=== PATIENT | female | born 1950 | race Caucasian/White ===

== ENCOUNTER → 2018-07-06 16:45 | Outpatient (CLI) | payer OTHER, SELFPAY ==
--- NOTE | 2018-07-06 16:49 | DI.RAD.S_ITS ---
PROCEDURE: XR WRIST RT MIN 3V INDICATIONS: right wrist pain TECHNIQUE: 4 views of the wrist were acquired. COMPARISON: None. FINDINGS: Bones: No fractures or dislocations. No suspicious bony lesions. Degenerative changes greatest at the first CMC and STT joints. Scaphoid view: No displaced fractures Soft tissues: No suspicious soft tissue calcifications. IMPRESSION: No acute fractures or dislocations. Degenerative changes greatest at the first CMC and STT joints. Dictated by: Jose Hernandez M.D. on 07/06/2018 at 17:05 Approved by: Jose Hernandez M.D. on 07/06/2018 at 17:06
== END ==
PROVIDERS: PCP Family Medicine; Visit Provider Physician Assistant
DX: M25.531 Pain in right wrist (principal); M19.031 Primary osteoarthritis, right wrist
CPT/HCPCS: 73110

== ENCOUNTER → 2019-04-15 08:22 | Outpatient (CLI) | payer OTHER, SELFPAY ==
--- NOTE | 2019-04-15 | DI.MG.S_ITS ---
BILATERAL DIGITAL SCREENING MAMMOGRAM 3D/2D WITH CAD: 04/15/2019 CLINICAL: Routine screening. Comparison is made to exams dated: 05/12/2017 mammogram, 02/12/2016 mammogram, and 02/06/2015 mammogram - [facility]. The tissue of both breasts is predominantly fatty. Current study was also evaluated with a Computer Aided Detection (CAD) system. No significant masses, calcifications, or other findings are seen in either breast. There has been no significant interval change. IMPRESSION: NEGATIVE There is no mammographic evidence of malignancy. A 1 year screening mammogram is recommended. This exam was interpreted at Station ID: [id number]. NOTE: For mammograms, a report in lay terms will be sent to the patient. Approximately 15% of breast malignancies will not be visualized mammographically. In the management of a palpable breast mass, a negative mammogram must not discourage biopsy of a clinically suspicious lesion. Electronically Signed By: David tidwell/carli:04/17/2019 08:06:00 letter sent: Normal Exam ACR BI-RADS Category 1: Negative 3341F
== END ==
PROVIDERS: PCP Family Medicine; Visit Provider Family Medicine
DX: Z12.31 Encounter for screening mammogram for malignant neoplasm of breast (principal)
CPT/HCPCS: 77063; 77067

== ENCOUNTER → 2019-05-09 07:25 | Outpatient (CLI) | payer OTHER, SELFPAY ==
[2019-05-09 08:34] LABS: Add Manual Diff / Slide Review NO; Basophils Absolute Auto 0 /uL (0-100); Basophils Percent Auto 0.7 % (0-2); Eosinophils Absolute Auto 100 /uL (0-450); Eosinophils Percent Auto 2.2 % (2-4); Hematocrit 39.8 % (36-46); Hemoglobin 13.3 g/dL (12.0-16.0); Lymphocytes Absolute Auto 1200 /uL (1100-4500); Lymphocytes Percent Auto 21.8 % (25-40); Mean Corpuscular HGB Conc 33.6 % (30-36); Mean Corpuscular Hemoglobin 34.4 PG (26-34); Mean Corpuscular Volume 102.6 fL (80-100); Monocytes Absolute Auto 600 /uL (0-900); Monocytes Percent Auto 10.7 % (3-14); Neutrophils Absolute Auto 3700 /uL (1500-7000); Neutrophils Percent Auto 64.6 % (50-75); Platelet Count 279 X10^3/uL (150-400); Red Blood Cell Count 3.88 X10^6/uL (4.0-5.2); Red Cell Distribution Width 13.4 % (11.6-14.8); White Blood Cell Count 5.7 X10^3/uL (4.5-11.0)
[2019-05-09 09:11] LABS: Alanine Aminotransferase 13 IU/L (9-52); Albumin 4.2 g/dL (3.5-5.0); Albumin Globulin Ratio 1.6 (1.0-2.8); Alkaline Phosphatase 47 U/L (38-126); Aspartate Aminotransferase 22 IU/L (14-36); BUN Creatinine Ratio 23.3 (6-22); Bilirubin Total 0.9 mg/dL (0.2-1.3); Blood Urea Nitrogen 14 mg/dL (7-17); Calcium 9.6 mg/dL (8.4-10.2); Carbon Dioxide 29 mmol/L (22-32); Chloride 103 mmol/L (98-107); Cholesterol 192 mg/dL (140-199); Estimated Glomerular Filt Rate > 60.0 mL/min (>60); Globulin 2.7 g/dL (1.7-4.1); Glucose 102 mg/dL (80-110); HDL Cholesterol 77 mg/dL (40-60); HEMOLYSIS < 15 (0-50); LDL Cholesterol Calculated 93 mg/dL (<100); Potassium 4.1 mmol/L (3.4-5.1); Sodium 140 mmol/L (137-145); Total Protein 6.9 g/dL (6.3-8.2); Triglycerides 112 mg/dL (35-150)
== END ==
PROVIDERS: PCP Family Medicine; Visit Provider Family Medicine
DX: D75.89 Other specified diseases of blood and blood-forming organs (principal); E78.5 Hyperlipidemia, unspecified; I10 Essential (primary) hypertension; Z00.00 Encounter for general adult medical examination without abnormal findings; Z13.6 Encounter for screening for cardiovascular disorders
CPT/HCPCS: 36415; 80053; 80061; 85025

== ENCOUNTER → 2020-11-05 15:03 | Outpatient (CLI) | payer MEDICARE, SELFPAY ==
--- NOTE | 2020-11-05 15:06 | DI.MG.S_ITS ---
BILATERAL DIGITAL SCREENING MAMMOGRAM 3D/2D WITH CAD: 11/05/2020 CLINICAL: Routine screening. Comparison is made to exams dated: 04/15/2019 mammogram, 05/12/2017 mammogram, and 02/12/2016 mammogram - [facility]. There are scattered fibroglandular elements in both breasts. Current study was also evaluated with a Computer Aided Detection (CAD) system. No significant masses, calcifications, or other findings are seen in either breast. There has been no significant interval change. IMPRESSION: NEGATIVE There is no mammographic evidence of malignancy. A 1 year screening mammogram is recommended. This exam was interpreted at Station ID: [id number]. NOTE: For mammograms, a report in lay terms will be sent to the patient. Approximately 15% of breast malignancies will not be visualized mammographically. In the management of a palpable breast mass, a negative mammogram must not discourage biopsy of a clinically suspicious lesion. Electronically Signed By: David tidwell/carli:11/05/2020 16:27:34 letter sent: Normal Exam ACR BI-RADS Category 1: Negative 3341F
== END ==
PROVIDERS: PCP Family Medicine; Referring Provider Family Medicine; Visit Provider Family Medicine
DX: Z12.31 Encounter for screening mammogram for malignant neoplasm of breast (principal); M85.851 Other specified disorders of bone density and structure, right thigh; Z78.0 Asymptomatic menopausal state; M06.9 Rheumatoid arthritis, unspecified; Z87.891 Personal history of nicotine dependence; Z82.62 Family history of osteoporosis
CPT/HCPCS: 77063; 77067; 77080

== ENCOUNTER → 2020-11-21 08:06 | Outpatient (CLI) | payer OTHER, SELFPAY ==
[2020-11-21 08:36] LABS: Add Manual Diff / Slide Review NO; Basophils Absolute Auto 0 /uL (0-100); Basophils Percent Auto 0.7 % (0-2); Eosinophils Absolute Auto 100 /uL (0-450); Eosinophils Percent Auto 2.2 % (2-4); Hematocrit 40.4 % (36-46); Hemoglobin 13.6 g/dL (12.0-16.0); Lymphocytes Absolute Auto 1600 /uL (1100-4500); Lymphocytes Percent Auto 25.8 % (25-40); Mean Corpuscular HGB Conc 33.8 % (30-36); Mean Corpuscular Hemoglobin 34.7 PG (26-34); Mean Corpuscular Volume 102.9 fL (80-100); Monocytes Absolute Auto 600 /uL (0-900); Monocytes Percent Auto 9.3 % (3-14); Neutrophils Absolute Auto 3800 /uL (1500-7000); Platelet Count 329 X10^3/uL (150-400); Red Blood Cell Count 3.92 X10^6/uL (4.0-5.2); Red Cell Distribution Width 13.3 % (11.6-14.8); White Blood Cell Count 6.2 X10^3/uL (4.5-11.0)
[2020-11-21 08:55] LABS: Alanine Aminotransferase 15 IU/L (<35); Albumin 4.3 g/dL (3.5-5.0); Albumin Globulin Ratio 1.5 (1.0-2.8); Alkaline Phosphatase 48 U/L (38-126); Aspartate Aminotransferase 30 IU/L (14-36); BUN Creatinine Ratio 21.7 (6-22); Bilirubin Total 0.8 mg/dL (0.2-1.3); Blood Urea Nitrogen 13 mg/dL (7-17); Calcium 9.5 mg/dL (8.4-10.2); Carbon Dioxide 33 mmol/L (22-32); Chloride 103 mmol/L (98-107); Cholesterol 194 mg/dL (140-199); Estimated Glomerular Filt Rate > 60.0 mL/min (>60); Globulin 2.9 g/dL (1.7-4.1); Glucose 112 mg/dL (80-110); HDL Cholesterol 73 mg/dL (40-60); HEMOLYSIS < 15 (0-50); LDL Cholesterol Calculated 101 mg/dL (<100); Potassium 3.4 mmol/L (3.4-5.1); Sodium 139 mmol/L (137-145); Total Protein 7.2 g/dL (6.3-8.2); Triglycerides 100 mg/dL (35-150)
[2020-11-21 09:19] LABS: Creatinine Urine Random 134.3 mg/dL
[2020-11-21 09:25] LABS: Microalbumin Urine Random < 0.6 mg/dL (0-1.6)
== END ==
PROVIDERS: PCP Family Medicine; Referring Provider Family Medicine; Visit Provider Family Medicine
DX: D75.89 Other specified diseases of blood and blood-forming organs (principal); E78.5 Hyperlipidemia, unspecified; I10 Essential (primary) hypertension
CPT/HCPCS: 36415; 80053; 80061; 82043; 82570; 85025

== ENCOUNTER → 2020-11-22 14:59 | Outpatient (CLI) | payer OTHER, SELFPAY ==
[2020-11-22 16:07] LABS: Vitamin B12 Reflex MMA if <400 351 pg/mL (239-931)
== END ==
PROVIDERS: PCP Family Medicine; Visit Provider Family Medicine
DX: D75.89 Other specified diseases of blood and blood-forming organs (principal); M85.80 Other specified disorders of bone density and structure, unspecified site
CPT/HCPCS: 82607

== ENCOUNTER → 2021-01-14 09:20 | Outpatient (CLI) | payer OTHER, SELFPAY ==
[2021-01-14 10:56] LABS: Vitamin D 25 Hydroxy (D3) 35.4 ng/mL (30.0-100.0)
[2021-01-14 11:28] LABS: Vitamin B12 Reflex MMA if <400 777 pg/mL (239-931)
== END ==
PROVIDERS: PCP Family Medicine; Referring Provider Family Medicine; Visit Provider Family Medicine
DX: D75.89 Other specified diseases of blood and blood-forming organs (principal); M85.80 Other specified disorders of bone density and structure, unspecified site; E53.8 Deficiency of other specified B group vitamins
CPT/HCPCS: 36415; 82306; 82607

== ENCOUNTER → 2021-01-17 07:42 | Outpatient (CLI) | payer MEDICARE, SELFPAY ==
[2021-01-17] MEDS: COVID-19 VACC, Ad26(JANSSEN)/PF 0.5 ML IM (07:50)
== END ==
PROVIDERS: PCP Family Medicine; Visit Provider Internal Medicine
DX: Z23 Encounter for immunization (principal)
CPT/HCPCS: 0031A; 91303

== ENCOUNTER → 2022-01-01 17:38 | Outpatient (CLI) | payer MEDICARE, OTHER, SELFPAY ==
--- NOTE | 2022-01-01 17:42 | DI.RAD.S_ITS ---
PROCEDURE: XR WRIST RT MIN 3V INDICATIONS: right wrist injury TECHNIQUE: 4 views of the wrist were acquired. COMPARISON: [facility], , XR WRIST RT MIN 3V, 07/06/2018, 16:28. FINDINGS: Bones: No fractures or dislocations. No suspicious bony lesions. Generalized decrease in osseous mineralization noted. First carpometacarpal joint space narrowing and marginal osteophytes present. Scaphoid view: Unremarkable Soft tissues: No suspicious soft tissue calcifications. IMPRESSION: Osteopenia without fracture or foreign body Osteoarthritis Approved by: Goyo Ferguson M.D. on 01/01/2022 at 17:47
--- NOTE | 2022-01-01 17:42 | DI.RAD.S_ITS ---
PROCEDURE: XR HAND RT MIN 3V INDICATIONS: right wrist injury TECHNIQUE: 3 views of the hand(s) acquired. COMPARISON: [facility], , HAND 3V RIGHT, 01/25/2014, 10:11. FINDINGS: Bones: No fractures or dislocations. Carpal bones are normally aligned. No suspicious bony lesions. Generalized decrease in osseous mineralization noted. Joint space narrowing and subchondral sclerosis noted involving the 1st carpometacarpal joint. Soft tissues: No suspicious soft tissue calcifications. IMPRESSION: Degenerative osteoarthritis without fracture or foreign body Approved by: Goyo Ferguson M.D. on 01/01/2022 at 17:48
== END ==
PROVIDERS: PCP Family Medicine; Referring Provider Student in an Organized Health Care Education/Training Program; Visit Provider Student in an Organized Health Care Education/Training Program
DX: S69.91XA Unspecified injury of right wrist, hand and finger(s), initial encounter (principal); M19.031 Primary osteoarthritis, right wrist; M85.831 Other specified disorders of bone density and structure, right forearm; X58.XXXA Exposure to other specified factors, initial encounter
CPT/HCPCS: 73110; 73130

== ENCOUNTER → 2022-02-18 14:36 | Outpatient (CLI) | payer MEDICARE, OTHER, SELFPAY ==
--- NOTE | 2022-02-18 14:39 | DI.MG.S_ITS ---
BILATERAL DIGITAL SCREENING MAMMOGRAM 3D/2D WITH CAD: 02/18/2022 CLINICAL: Routine screening. Comparison is made to exams dated: 11/05/2020 mammogram, 04/15/2019 mammogram, and 05/12/2017 mammogram - [facility]. There are scattered fibroglandular elements in both breasts. Current study was also evaluated with a Computer Aided Detection (CAD) system. No significant masses, calcifications, or other findings are seen in either breast. There has been no significant interval change. IMPRESSION: NEGATIVE There is no mammographic evidence of malignancy. A 1 year screening mammogram is recommended. This exam was interpreted at Station ID: [id number]. NOTE: For mammograms, a report in lay terms will be sent to the patient. Approximately 15% of breast malignancies will not be visualized mammographically. In the management of a palpable breast mass, a negative mammogram must not discourage biopsy of a clinically suspicious lesion. Electronically Signed By: Neftali goddard/carli:02/18/2022 15:13:26 letter sent: Normal Exam ACR BI-RADS Category 1: Negative 3341F
== END ==
PROVIDERS: PCP Family Medicine; Referring Provider Family Medicine; Visit Provider Family Medicine
DX: Z12.31 Encounter for screening mammogram for malignant neoplasm of breast (principal)
CPT/HCPCS: 77063; 77067

== ENCOUNTER → 2022-03-11 07:09 | Outpatient (CLI) | payer MEDICARE, OTHER, SELFPAY ==
[2022-03-11 07:58] LABS: Add Manual Diff / Slide Review NO; Basophils Absolute Auto 0 /uL (0-100); Basophils Percent Auto 0.8 % (0-2); Eosinophils Absolute Auto 100 /uL (0-450); Eosinophils Percent Auto 2.2 % (2-4); Hematocrit 38.8 % (36-46); Hemoglobin 13.4 g/dL (12.0-16.0); Lymphocytes Absolute Auto 1500 /uL (1100-4500); Mean Corpuscular HGB Conc 34.6 % (30-36); Mean Corpuscular Hemoglobin 35.2 PG (26-34); Mean Corpuscular Volume 101.7 fL (80-100); Monocytes Absolute Auto 600 /uL (0-900); Monocytes Percent Auto 9.8 % (3-14); Neutrophils Absolute Auto 3800 /uL (1500-7000); Neutrophils Percent Auto 63.2 % (50-75); Platelet Count 307 X10^3/uL (150-400); Red Blood Cell Count 3.81 X10^6/uL (4.0-5.2); Red Cell Distribution Width 13.5 % (11.6-14.8); White Blood Cell Count 6.1 X10^3/uL (4.5-11.0)
[2022-03-11 08:17] LABS: Alanine Aminotransferase 15 IU/L (<35); Albumin 4.2 g/dL (3.5-5.0); Albumin Globulin Ratio 1.6 (1.0-2.8); Alkaline Phosphatase 47 U/L (38-126); Aspartate Aminotransferase 25 IU/L (14-36); BUN Creatinine Ratio 17.6 (6-22); Bilirubin Total 0.8 mg/dL (0.2-1.3); Blood Urea Nitrogen 12 mg/dL (7-17); Calcium 9.2 mg/dL (8.4-10.2); Carbon Dioxide 28 mmol/L (22-32); Chloride 104 mmol/L (98-107); Cholesterol 215 mg/dL (140-199); Estimated Glomerular Filt Rate > 60 mL/min (>60); Globulin 2.7 g/dL (1.7-4.1); Glucose 109 mg/dL (80-110); HDL Cholesterol 89 mg/dL (40-60); HEMOLYSIS < 15 (0-50); LDL Cholesterol Calculated 108 mg/dL (<100); Potassium 3.8 mmol/L (3.4-5.1); Sodium 139 mmol/L (137-145); Total Protein 6.9 g/dL (6.3-8.2); Triglycerides 91 mg/dL (35-150)
[2022-03-11 08:23] LABS: Vitamin D 25 Hydroxy (D3) 44.7 ng/mL (30.0-100.0)
[2022-03-11 08:37] LABS: TSH w/ Reflex to FT4 2.29 uIU/mL (0.47-4.68)
[2022-03-11 08:39] LABS: Microalbumin Urine Random < 0.6 mg/dL (0-1.6)
[2022-03-11 08:57] LABS: Vitamin B12 913 pg/mL (239-931)
== END ==
PROVIDERS: PCP Family Medicine; Referring Provider Family Medicine; Visit Provider Family Medicine
DX: E78.5 Hyperlipidemia, unspecified (principal); M85.80 Other specified disorders of bone density and structure, unspecified site; D75.89 Other specified diseases of blood and blood-forming organs; E53.8 Deficiency of other specified B group vitamins; I10 Essential (primary) hypertension; R73.03 Prediabetes
CPT/HCPCS: 36415; 80053; 80061; 82043; 82306; 82570; 82607; 84443; 85025

== ENCOUNTER → 2023-02-24 14:42 | Outpatient (CLI) | payer MEDICARE, OTHER, SELFPAY ==
--- NOTE | 2023-02-24 14:44 | DI.MG.S_ITS ---
BILATERAL DIGITAL SCREENING MAMMOGRAM 3D/2D WITH CAD: 02/24/2023 CLINICAL: Routine screening. Comparison is made to exams dated: 02/18/2022 mammogram, 11/05/2020 mammogram, 04/15/2019 mammogram, and 05/12/[address] - [facility]. There are scattered areas of fibroglandular density in both breasts (category b / 25%-50% glandular tissue). Current study was also evaluated with a Computer Aided Detection (CAD) system. No significant masses, calcifications, or other findings are seen in either breast. There has been no significant interval change. IMPRESSION: NEGATIVE There is no mammographic evidence of malignancy. A 1 year screening mammogram is recommended. Based on the Tyrer Cuzick model (a risk assessment model) the patient's lifetime risk is 6.2% and her 10 year risk is 4.6%. According to the ACR, ACS, and NCCN guidelines, an annual breast MRI exam along with mammogram is recommended if the patient's lifetime risk is 20% or greater. This exam was interpreted at Station ID: [id number]. NOTE: For mammograms, a report in lay terms will be sent to the patient. Approximately 15% of breast malignancies will not be visualized mammographically. In the management of a palpable breast mass, a negative mammogram must not discourage biopsy of a clinically suspicious lesion. Electronically Signed By: Jonah neff/carli:02/24/2023 15:55:14 letter sent: Normal Exam ACR BI-RADS Category 1: Negative 3341F
--- NOTE | 2023-02-24 15:17 | DI.DEXA.S_ITS ---
Bone Density Report Name: NAVEEN ESQUIVEL Age: 72 Sex: Female Ethnicity: White Date of : 1950 Indication: postmenopausal; screening for osteoporosis; parental hip fracture; Referring Provider: PANCHO HOLLIS Study: Bone densitometry was performed. Exam Date: February 24, 2023 Accession number: [id number] Bone Density: Region BMD T-score Z-score Classification AP Spine(L2, L3, L4) 0.948 -1.2 1.1 Osteopenia Femoral Neck (Left) 0.626 -2.0 -0.1 Osteopenia Total Hip (Left) 0.830 -0.9 0.7 Normal Femoral Neck (Right) 0.626 -2.0 -0.1 Osteopenia Total Hip (Right) 0.813 -1.1 0.6 Osteopenia Total Hip Mean 0.822 -1.0 0.7 Normal World Health Organization criteria for BMD impression classify patients as: Normal (T-score at or above -1.0), Osteopenia (T-score between -1.0 and -2.5), or Osteoporosis (T-score at or below -2.5). 10-year Fracture Risk(1): Major Osteoporotic Fracture 19% Hip Fracture 7.3% Reported Risk Factors: [place] (), Neck BMD=0.626, BMI=25.7, parental fracture (1) FRAX(R) Version 3.08. Fracture probability calculated for an untreated patient. Fracture probability may be lower if the patient has received treatment. Previous Exams: -- Region Exam Age BMD T-score BMD Change BMD Change Date g/cm2 vs Baseline vs Previous -- AP Spine (L2-L4) 02/24/2023 72 0.948 -1.2 -0.058 (-5.8%)# -0.058 (-5.8%)# 11/05/2020 69 1.006 -0.7 Total Hip(Left) 02/24/2023 72 0.830 -0.9 -0.051 (-5.8%)# -0.051 (-5.8%)# 11/05/2020 69 0.881 -0.5 Total Hip(Right) 02/24/2023 72 0.813 -1.1 -0.040 (-4.7%)# -0.040 (-4.7%)# 11/05/2020 69 0.853 -0.7 -- *Denotes significance at 95% confidence level, LSC for AP Spine = 0.022 g/cm2, LSC for Total Hip = 0.027 g/cm2 # Denotes dissimilar scan types or analysis methods Impression: The patient has low bone mass, based on the Left Femoral Neck T-score. The patient has an estimated ten-year risk of hip fracture of 7.3% and an estimated ten-year risk of major fracture of 19%, based on the WHO FRAX algorithm. The patient has risk factors, including: parental hip fracture. No significant bone loss was observed. Discussion: BONE DENSITY IS LOW AT ONE OR MORE SKELETAL SITES. THE PATIENT'S BMD AND CLINICAL RISK FACTORS CONTRIBUTE TO THIS PATIENT'S INCREASED RISK OF FRACTURE. This patient's lowest T-score is low at one or more skeletal sites. It meets the World Health Organization's (WHO) criteria for ?low bone mass? (T-score between -1.0 and -2.5). The patient's 10-year risk of hip fracture as calculated by FRAX exceeds the threshold where pharmacological therapy is recommended by the National Osteoporosis Foundation (NOF). However, all treatment decisions require clinical judgment and consideration of individual patient factors, including patient preferences, comorbidities, previous drug use, risk factors not captured in the FRAX model (e.g., frailty, falls, vitamin D deficiency, increased bone turnover, interval significant decline in bone density) and possible under or overestimation of fracture risk by FRAX. The patient should follow a healthful lifestyle (good nutrition with adequate calcium and vitamin D, and appropriate weight-bearing exercise). Follow-Up: Consider a repeat BMD and Vertebral Fracture Assessment (VFA) exam in 2 years or sooner if medically necessary, to reassess this patient's status. Reported by: SCOTT MOODY MD on 02/24/2023 3:05:00 PM.
== END ==
PROVIDERS: PCP Family Medicine; Referring Provider Family Medicine; Visit Provider Family Medicine
DX: Z12.31 Encounter for screening mammogram for malignant neoplasm of breast (principal); Z13.820 Encounter for screening for osteoporosis; M85.852 Other specified disorders of bone density and structure, left thigh; Z78.0 Asymptomatic menopausal state; D53.9 Nutritional anemia, unspecified; I10 Essential (primary) hypertension; E78.5 Hyperlipidemia, unspecified; Z12.83 Encounter for screening for malignant neoplasm of skin
CPT/HCPCS: 77063; 77067; 77080

== ENCOUNTER 2023-06-04 11:35 | Day surgery (SDC) | payer MEDICARE, OTHER, SELFPAY ==
[2023-06-04] VITALS (8 sets, daily range): BP systolic 91–142; BP diastolic 52–81; PULSE 63–100; RESP 14–20; TEMP 36.1–37; O2SAT 96–100; BMI 24.9
--- NOTE | 2023-06-04 | PATH_ITS ---
[facility] Accession Number: [id number] No. of containers..01 Tissue . 01 Material submitted: . cecum - CECAL POLYP . 01 Diagnosis: Cecum, Polyp: Tubular adenoma. JNL 06/11/2023 1742 Local . 01 Electronically signed: . Faustina Pro MD, Pathologist NPI- [id number] . 01 Gross description: . CECAL POLYP: Received in formalin are 2 fragment(s) of sandhu, soft tissue measuring 0.2 x 0.2 x 0.2 cm to 0.3 x 0.3 x 0.2 cm submitted entirely in 1 cassette(s) /RAJAN 06/09/2023 0046 Local . 01 Pathologist provided ICD-10: D12.0 . 01 CPT . 224037 Specimen Comment: A courtesy copy of this report has been sent to Pathology Performed at: [address] [facility] [address] [place] [address], [place], [place] [id number] MD David Norton MD Phone: [phone]
--- NOTE | 2023-06-04 11:50 | P.HP_ITS ---
History of Present Illness History of Present Illness Date Patient Seen: 06/04/23 Time Patient Seen: 11:50 Chief complaint: Dx Colonoscopy w/poss bx Narrative: 72-year-old female presents today for a screening colonoscopy. Her last colonoscopy was 5 or 6 years ago here at [facility] though I do not have the report available for review. She reports a history of 2 polyps and was given a 5 year follow-up because of that. He has no family history of colon c ancer. And she reports some symptoms of external and internal hemorrhoids as well as the fissure and what she thinks might be a developing skin tag. She reports that the anal area can be painful sometimes but is often itchy and burning. She does not take a fiber supplement though she does try to eat more fiber in her diet. [facility] Medical History Actinic keratosis of right cheek (2013) Cervical spine disease (2012) Chicken pox (~1954) Degenerative arthritis of thumb (2012) Easy bruisability Hayfever Hearing loss Hemorrhoids (2011) History of recurrent ear infection Hyperlipidemia Hypertension Itching of ear Measles (~1954) Menopause (2002) Normal Papanicolaou smear Osteoarthritis (2012) Osteopenia after menopause Prediabetes Psychiatric care (2014) Recurrent sinusitis Retroversion of hip (2013) Shoulder pain (2015) Sleep apnea (2012) Synovial cyst of popliteal space [Alatorre], right knee (2013) Tinnitus Wax in ear Surgical History Anesthesia Status post knee surgery (1965) Family History Grandmother Heart disease [place] (myocardial infarction) Mother Diabetes mellitus, type II CAD (coronary artery disease) Osteoarthritis Mild dementia S/P CABG (coronary artery bypass graft) Renal failure Heart disease Hypertension Grandfather Parkinson's disease Pneumonia Grandmother Heart disease Father COPD (chronic obstructive pulmonary disease) Emphysema of lung Grandfather Esophageal hemorrhage NH (myocardial infarction) Esophageal varices Sister Left hip pain Social History household members: spouse Smoking Status: Former smoker alcohol intake: current substance use type: marijuana Meds Home Medications and Allergies Home Medications Medication Instructions Recorded Confirmed Type triamcinolone acetonide 0.1 % 1 applic topical BID #15 grams 09/23/20 06/04/23 Rx topical cream hydrochlorothiazide 25 mg tablet 25 mg PO QDAY #90 tabs 02/24/23 06/04/23 Rx Allergies Allergy/AdvReac Type Severity Reaction Status Date / Time No Known Drug Allergies Allergy Verified 06/04/23 11:55 Exam Const General: cooperative, healthy appearing and comfortable Nutritional Appearance: average body habitus HENMT Head: normal to inspection Eyes General: appearance normal, both eyes and all related structures Resp Effort & Inspection: normal respiratory effort and able to speak in complete sen tences GI Palpation: soft and No tender Assessment & Plan Assessment and plan (1) History of colon polyps: Status: Acute (2) Encounter for screening colonoscopy: Status: Acute (3) Anal fissure, unspecified: Status: Acute Assessment & Plan narrative: Presents today for screening colonoscopy I discussed the risks benefits and alternatives including but not limited to perforation of the colon and an incomplete exam she fully understands these risks and would like to proceed. I will also examine her anal area and the fissure and if indicated I will try to ask my office to send her a script for some nifedipine cream and potentially schedule a follow-up as needed with me in the office for fissure. I have spent several minutes counseling her about fiber supplementation in addition which I recommend highly.
--- NOTE | 2023-06-04 14:08 | P.OP.COLON_ITS ---
Operative Date/Time/Diagnoses Date of procedure: 06/04/23 Time of procedure: 14:09 Pre-op diagnosis: Colon cancer screening, history of polyps Post-op diagnosis: same Procedure & Clinicians Study performed: Colonoscopy and biopsy Same procedure as scheduled: Yes Indications: History of polyps and colon cancer screening. Also patient endorses symptoms and signs of anal fissure. Surgeon: Leni Pollard Procedure Notes Procedure in detail: Patient was taken to the endoscopy suite and placed in a left lateral decubitus position. A time-out was performed. With the help of anesthesiologist conscious sedation was induced and monitored throughout the case. A digital rectal exam was performed and there were no masses or strictures. The external anal exam did reveal a posterior midline anal fissure with a small associated anal skin tag. The sphincter tone was quite tight. The colonoscope was introduced into the anal canal and advanced. There were multiple diverticula within the sigmoid colon which was quite tortuous. Sometime during our around the splenic flexure the patient became very very uncomfortable. Several anesthetic attempts were made to ameliorate her comfort level without success. This did cause a delay and after assessment a new IV was placed in the left hand and sedation was given through the new IV resulting in normal acceptable comfort levels. It appears that the previously placed right antecubital IV became infiltrated at some point during the procedure. After the patient was more comfortable I continued to advance the scope across the splenic flexure transverse colon and hepatic flexure. A photograph of the appendiceal orifice was obtained. The bowel prep was good Custer bowel prep score of 2. There was a very small polyp at the junction of the cecum and ascending colon right at a fold. It was very difficult to biopsy this small polyp and about 20 minutes were spent attempting to gain exposure there. The scope was then withdrawn very slowly for an additional of 15 minutes and no additional polyps were seen. The scope was then retroflexed and a photograph of the internal hemorrhoidal piles was obtained. Findings: divertiulosis, polyp(s) and other findings (Tortuous sigmoid and anal fissure) Specimen(s): other (Small cecal polyp) Post-procedure Plan for aftercare: Depending on pathology of the small polyp 7-10 year follow-up will likely be recommended. I do recommend fiber supplementation. I have also called in an ointment to use for an your anal fissure and you may follow-up in the office of the [facility] as needed if this is not working well for you.
--- NOTE | 2023-06-04 15:14 | SUR.PHASEI ---
IVFs NOT SCANNED PRIOR TO PROCEDURE. INFILTRATED RIGHT A/C IV SITE INSPECTED. NO SWELLING OR DRAINAGE NOTED. ICE PACK PLACED. PT DROWSY BUT ORIENTED X 3. RESP EVEN, UNLABORED. AT BEDSIDE. NAD NOTED. WILL CONTINUE TO MONITOR. ANESTHESIA GIVEN UPDATE.
--- NOTE | 2023-06-04 15:17 | SUR.PHASEI ---
100CC LR LEFT TO COUNT.
== END 2023-06-04 15:55 | disposition home or self-care (01) ==
PROVIDERS: PCP Family Medicine; Referring Provider Surgery; Visit Provider Surgery
PROC: 0DJD8ZZ Inspection of Lower Intestinal Tract, Via Natural or Artificial Opening Endoscopic (ICD-10-PCS; CPT 45378; principal; 2023-06-04 12:45)
DX: Z12.11 Encounter for screening for malignant neoplasm of colon (principal); Z86.010 Personal history of colon polyps; K60.2 Anal fissure, unspecified; K57.30 Diverticulosis of large intestine without perforation or abscess without bleeding; D12.0 Benign neoplasm of cecum
CPT/HCPCS: 45380; J2250; J2704; J3010

== ENCOUNTER → 2023-10-11 07:45 | Outpatient (CLI) | payer MEDICARE, OTHER, SELFPAY ==
[2023-10-11 09:03] LABS: Hematocrit 38.5 % (36-46); Hemoglobin 13.3 g/dL (12.0-16.0); Mean Corpuscular HGB Conc 34.7 % (30-36); Mean Corpuscular Hemoglobin 35.4 PG (26-34); Platelet Count 359 X10^3/uL (150-400); Red Blood Cell Count 3.77 X10^6/uL (4.0-5.2); Red Cell Distribution Width 13.1 % (11.6-14.8); White Blood Cell Count 7.2 X10^3/uL (4.5-11.0)
[2023-10-11 09:36] LABS: BUN Creatinine Ratio 23.7 (6-22); Blood Urea Nitrogen 14 mg/dL (7-17); Calcium 9.7 mg/dL (8.4-10.2); Carbon Dioxide 27 mmol/L (22-32); Chloride 100 mmol/L (98-107); Cholesterol 186 mg/dL (140-199); Estimated Glomerular Filt Rate > 60 mL/min (>60); Glucose 97 mg/dL (80-110); HDL Cholesterol 85 mg/dL (40-60); HEMOLYSIS < 15 (0-50); LDL Cholesterol Calculated 85 mg/dL (<100); Potassium 3.7 mmol/L (3.4-5.1); Sodium 135 mmol/L (137-145); Triglycerides 79 mg/dL (35-150)
== END ==
PROVIDERS: PCP Family Medicine; Referring Provider Family Medicine; Visit Provider Family Medicine
DX: Z12.83 Encounter for screening for malignant neoplasm of skin (principal); D53.9 Nutritional anemia, unspecified; I10 Essential (primary) hypertension; M85.80 Other specified disorders of bone density and structure, unspecified site; E78.5 Hyperlipidemia, unspecified; N95.9 Unspecified menopausal and perimenopausal disorder
CPT/HCPCS: 36415; 80048; 80061; 85027

== ENCOUNTER → 2023-10-18 08:28 | Outpatient (CLI) | payer MEDICARE, OTHER, SELFPAY ==
--- NOTE | 2023-10-18 08:29 | DI.CT.S_ITS ---
PROCEDURE: CT ABDOMEN PELVIS W CON INDICATIONS: left lower abdomen pain TECHNIQUE: After the administration of oral and intravenous contrast, axial sections were acquired from the lung bases to the pubic symphysis. Coronal and sagittal reformats were performed. For radiation dose reduction, the following was used: automated exposure control, adjustment of mA and/or kV according to patient size. COMPARISON:None. FINDINGS: Image quality: Excellent. Lung bases: Unremarkable. Heart: No significant findings. ABDOMEN: Liver: No solid mass. Gallbladder: Unremarkable. Biliary ducts: No biliary dilation. Pancreas: No ductal dilation. Spleen: Size is within normal limits. Adrenal Glands: No adrenal nodules. Kidneys and Ureters: No hydronephrosis. No solid mass. No complex renal cystic lesion which requires follow up. Stomach and Bowel: Normal colonic caliber, without significant wall thickening. There are scattered sigmoid diverticula. Although there is no pericolonic fat stranding or bowel wall thickening there is a large lobulated diverticulum within the sigmoid colon which measures 1.7 x 1.8 by 1.2 cm (series 2/image 56 and series 3/image 24). This appears stool and gas filled without focal inflammatory changes at this time. The appendix is thin walled and gas-filled and extends into the posterior right hemipelvis. Peritoneum: No abnormal intraperitoneal fluid. No free air. Ventral Wall: No hernia. Abdominal Nodes: No retroperitoneal or mesenteric adenopathy by size criteria. Vessels: Aorta and inferior vena cava are normal in size. PELVIS: Pelvic Organs: There is marked thickening of the endometrium measuring up to 2.6 cm in diameter. Bladder: Unremarkable. Pelvic Nodes: No enlarged lymph nodes. Miscellaneous: No inguinal hernias are seen. Bones: Unremarkable. IMPRESSION: 1. Diverticulosis. Although there are no findings to suggest acute diverticulitis, there is a relatively large diverticulum within the sigmoid colon as described above. Intermittent obstruction and inflammation could cause intermittent left lower quadrant pain. 2. Markedly thickened endometrium which is abnormal in a postmenopausal patient. Findings are suspicious for endometrial carcinoma or hypertrophy. Gynecologic consultation and endometrial biopsy is recommended. 3. No acute intra-abdominal findings. Normal appendix. Dictated by: Darlene Gifford M.D. on 10/18/2023 at 11:17 Approved by: Darlene Gifford M.D. on 10/18/2023 at 11:23
== END ==
PROVIDERS: PCP Family Medicine; Referring Provider Surgery; Visit Provider Surgery
DX: K57.30 Diverticulosis of large intestine without perforation or abscess without bleeding (principal); R93.89 Abnormal findings on diagnostic imaging of other specified body structures
CPT/HCPCS: 74177; Q9967

== ENCOUNTER → 2023-11-03 07:44 | Outpatient (CLI) | payer MEDICARE, OTHER, SELFPAY ==
--- NOTE | 2023-11-03 07:46 | DI.US.S_ITS ---
PROCEDURE: US PELVIC COMPLETE INDICATIONS: THICKENED ENDOMETRIUM ON CT TECHNIQUE: Real-time scanning was performed of the pelvic organs, with image documentation. Additional endovaginal scanning was necessary due to incomplete visualization of the adnexal and endometrial structures by transabdominal scanning. COMPARISON: None. FINDINGS: Uterus: Uterus is retroverted and normal in size at 5.5 x 5.1 x 3.6 cm. The myometrium is homogeneous. The endometrium measures 1.3 mm combined thickness. There is large volume of fluid within the endometrium measuring 15.5 cc. Irregularity of the endometrial lining with multiple masslike projections into the fluid measuring up to 6 millimeters without vascularity. Ovaries: The right ovary measures 1.9 x 1.6 x 1.4 cm, with a calculated ovarian volume of 2.2 cc. The left ovary measures 3.0 x 1.4 x 1.1 cm, with a calculated ovarian volume of 2.4 cc. Right ovarian hypoechoic solid/cystic area with shadowing measuring 1.2 centimeters. No adnexal masses are seen. Other: No pathologic free abdominal or pelvic fluid. IMPRESSION: 1. Large volume complex fluid within the endometrium with irregularity of the endometrial lining containing masslike projections measuring up to 6 millimeters. Malignancy is not excluded. Recommend endometrial sampling. 2. Right ovarian hypoechoic solid versus complex cystic structure measuring 1.2 centimeters. Recommend follow-up ultrasound in 6-12 weeks to assess stability or resolution. We strive to produce accurate, complete, and clear reports of imaging services. To assist us in improving patient care, this report was composed using standard report templates and voice recognition software. Therefore, it may contain abnormal punctuation, insertions and/or omissions. Occasional wrong-word or sound-alike substitutions may occur. Though we review the report and make efforts to correct it, we do recommend that the report be read carefully in proper context to recognize any text inaccuracies. Dictated by: Thai Gongora M.D. on 11/03/2023 at 10:29 Approved by: Thai Gongora M.D. on 11/03/2023 at 10:35
[2023-11-03 15:42] LABS: Cancer Antigen 125 14.4 U/mL (0-35)
[2023-11-07 10:12] LABS: Human Epididymis Prot 4 68.5 pmol/L (0.0-96.9)
== END ==
PROVIDERS: PCP Family Medicine; Referring Provider Obstetrics & Gynecology; Visit Provider Obstetrics & Gynecology
DX: R93.89 Abnormal findings on diagnostic imaging of other specified body structures (principal)
CPT/HCPCS: 36415; 76830; 76856; 86304; 86305

== ENCOUNTER → 2023-11-05 16:56 | Outpatient (CLI) | payer MEDICARE, OTHER, SELFPAY | PROVIDERS: PCP Family Medicine; Visit Provider Obstetrics & Gynecology | DX: R93.89 Abnormal findings on diagnostic imaging of other specified body structures (principal) | CPT/HCPCS: 87070; 87205 ==

== ENCOUNTER 2023-11-11 08:44 | Day surgery (SDC) | payer MEDICARE, OTHER, SELFPAY ==
[2023-11-09 13:36] VITALS: BMI 26.8
--- NOTE | 2023-11-11 | PATH_ITS ---
[facility] Accession Number: [id number] No. of containers..01 Tissue . 01 Material submitted: . endometrium - ENDOMETRIAL CURETTINGS . 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 Prominent sampling of background squamous mucosa. No invasive malignancy identified. V 11/23/2023 0941 Local . 01 Comment: As part of routine quality control manager, Dr. Lerma has reviewed this case and agrees with the diagnosis of EIN involving fragments of endometrial polyp. . 01 Electronically signed: . Jordy White MD, PhD, Pathologist NPI- [id number] . 01 Gross description: . ENDOMETRIAL CURETTINGS: Received in formalin is multiple fragment(s) of sandhu, soft tissue measuring 2.5 x 1.0 x 0.3 cm in aggregate submitted entirely in 1 cassette(s) /AAY 11/12/2023 0509 Local . 01 Microscopic: . Sections are of multiple fragments of endometrium with features suggestive of endometrial polyp (stromal fibrosis with dilated lumina). Prominent sampling of squamous mucosa is also present. Some fragments of endometrium show glandular crowding with irregular glandular profiles. To further evaluate the crowded areas, a panel of immunohistochemical stains is performed (each with an appropriately control). A p53 immunohistochemical stain shows wild type immunoreactivity. A p16 immunohistochemical stain is variably positive without diffuse staining. Estrogen receptor and progesterone receptor immunohistochemical stains show variable immunoreactivity. A vimentin stain shows basolateral immunoreactivity within the epithelium without apical staining. A monoclonal CEA antibody is variably positive. Immunohistochemical stains for DNA mismatch repair proteins (MLH-1, PSM-2, MSH-2, and MSH-6) show intact nuclear immunoreactivity. The overall morphology and immunoprofile are most consistent with endometrial intraepithelial neoplasm (EIN). . * This test was developed and its performance characteristics determined by [facility]. It has not been cleared or approved by the U.S. Food and Drug Administration. The FDA has determined that such clearance or approval is not necessary. This test is used for clinical purposes. It should not be regarded as investigational or for research. . 01 Pathologist provided ICD-10: N85.02 . 01 CPT . 439972, L68927, N11506 Specimen Comment: A courtesy copy of this report has been sent to [phone] Performed at: 01 [facility] [address] [place] [address], [place], [place] [id number] MD David Norton MD Phone: [phone]
[2023-11-11 09:07] VITALS: BP 139/80; PULSE 90; RESP 16; TEMP 36.6; O2SAT 99; BMI 26.8
[2023-11-11] MEDS: LACTATED RINGERS 1,000 ML 42 ML IV (09:12)
--- NOTE | 2023-11-11 10:15 | P.HPOB_ITS ---
History of Present Illness History of Present Illness Narrative: Violeta Hernandes is a 72 year old female 1 para 0 who presents for a D&C hysteroscopy due to thickened endometrial lining with irregular masslike projections [facility] Medical History (Updated 11/09/23 @ 13:58 by Lashae Hernandez RN) History of COVID-19 (12/2022) Prediabetes Osteopenia after menopause Psychiatric care (2014) Menopause (2002) Normal Papanicolaou smear Retroversion of hip (2013) Degenerative arthritis of thumb (2012) Synovial cyst of popliteal space [Alatorre], right knee (2013) Shoulder pain (2015) Cervical spine disease (2012) Wax in ear Itching of ear Recurrent sinusitis History of recurrent ear infection Easy bruisability Hearing loss Tinnitus Hemorrhoids (2011) Chicken pox (~1954) Measles (~1954) Hayfever Sleep apnea (2012) Osteoarthritis (2012) Hyperlipidemia Hypertension Actinic keratosis of right cheek (2013) Surgical History (Updated 11/09/23 @ 13:55 by Lashae Hernandez RN) Hx of colonoscopy (06/04/23) Anesthesia Status post knee surgery (1965) Family History Grandmother Heart disease [place] (myocardial infarction) Mother Diabetes mellitus, type II CAD (coronary artery disease) Osteoarthritis Mild dementia S/P CABG (coronary artery bypass graft) Renal failure Heart disease Hypertension Grandfather Parkinson's disease Pneumonia Grandmother Heart disease Father COPD (chronic obstructive pulmonary disease) Emphysema of lung Grandfather Esophageal hemorrhage [place] (myocardial infarction) Esophageal varices Sister Left hip pain Social History household members: spouse Smoking Status: Former smoker alcohol intake: current substance use type: marijuana Meds Home Medications and Allergies Home Medications Medication Instructions Recorded Confirmed Type Nifedipine Oint 1 dose topical 2XD #30 grams 06/04/23 11/11/23 Rx miscellaneous medical supply 1 ea miscellaneous BID #1 ea 06/04/23 11/05/23 Rx psyllium husk (with sugar) 3.4 1 tbsp PO BID #822 grams 06/04/23 11/11/23 Rx gram/7 gram oral powder (Fiber (psyllium husk-sugar)) hydrochlorothiazide 25 mg tablet 25 mg PO QDAY #90 tabs 07/28/23 11/11/23 Rx Allergies Allergy/AdvReac Type Severity Reaction Status Date / Time No Known Drug Allergies Allergy Verified 11/11/23 09:06 Exam Vital Signs (past 8 hours): - 11/11/23 09:07 Temperature 98 F Pulse Rate 90 Respiratory Rate 16 Blood Pressure 139/80 Pulse Oximetry 99 Oxygen Delivery Method Room Air Oxygen Delivery Method Room Air Narrative Exam Narrative: Generally: A well-developed, well-nourished female, no acute distress HEENT: No thyromegaly, no anterior cervical or supraclavicular lymphadenopathy. Lungs:Clear to auscultation bilaterally, no wheezes. Cardiovascular: Regular rate and rhythm, no murmurs, rubs, or gallops. Abdomen: No scars. No hepatosplenomegaly. No masses palpable. External genitalia: Normal Vagina: Normal Cervix: Normal Bimanual exam: 6 Week size anteverted uterus. Mobile. Extremities: No edema Assessment & Plan Assessment & Plan narrative: Assessment: 72-year-old 1 para 0 with thickened endometrial lining with irregular projections into the lining Endometrial biopsy in the office was scant cellularity Plan: D&C hysteroscopy The risks, benefits, and alternatives to the procedure were explained to the tommy rose. The risks including bleeding, infection, and uterine perforation. She understands these risks and agrees to proceed. A full par Q was held and consent form was signed. Time Spent With Patient Time with patient: less than 30 minutes
--- NOTE | 2023-11-11 10:19 | PM.PREOP ---
Pre-operative Note Interval Note History & Physical reviewed/Exam performed by Physician: Yes Changes to H&P: No H&P completed within 30 days and has changed as indicated here:: 11/11/23
[2023-11-11] MEDS: ACETAMINOPHEN IV 1,000 MG/100 ML VIAL 400 MG IV (10:45)
[2023-11-11 11:33] VITALS: BP 115/66; PULSE 78; RESP 16; TEMP 36.8; O2SAT 98
--- NOTE | 2023-11-11 11:35 | PM.GYNOP.1 ---
Operative Date/Time/Diagnoses Date of procedure: 11/11/23 Time of procedure: 11:35 Pre-op diagnosis: Endometrial hyperplasia by ultrasound Fluid in the endometrial canal Stenotic cervix Post-op diagnosis: same Procedure & Clinicians Procedure: Procedures Operation Date: 11/11/23 10:15 Actual Procedure Side Surgeon p Hysteroscopy D&C MyoSure June Majano MD Indications: 72-year-old 1 para 0 with endometrial hyperplasia by ultrasound and fluid in the endometrial canal on endometrial biopsy Cervical stenosis Surgeon: June Majano Anesthesia Type: General (LMA) Operative Notes Findings: 5 week size slightly retroverted uterus Both fallopian tube ostia observed On the patient's left side mid uterus there were many small finger-like projections consistent with polyps Closure Type: not applicable Specimen(s): endometrial curettings Estimated blood loss (mL): 10 Blood products transfused: none Procedure in detail: After informed consent was obtained, the patient was taken to the operating room where she was placed in the dorsal supine position. After adequate LMA general anesthesia was achieved, she was placed in the dorsal lithotomy position, and prepped and draped in the usual sterile fashion. A time-out was performed. There was an attempt to place the Graves speculum but the vagina was too small. A Dangelo speculum was placed into the vagina. The anterior lip of the cervix was grasped with a single-tooth tenaculum. The cervical os was dilated to the # 5 Hegar dilator. Then a plastic gradual dilator was used to go up to #7. Further dilation to the #8 Hegar dilator was performed gently. Upon dilation there was some murky/bloody fluid coming from the endometrial cavity. The hysteroscope passed into the endometrial cavity. Both fallopian tube ostia were observed. Near the left fallopian tube ostia there was a polyp which was resected with the MyoSure. On the patient's left side mid body of the uterus there were small finger-like projections consistent with polyps which were also excised. The hysteroscope and MyoSure were removed from the uterus. Gentle sharp curettage was performed yielding small amount of additional tissue. The instruments were removed from the uterus. The single-tooth tenaculum was removed from the anterior lip of the cervix. The Dangelo speculum was removed from the vagina. Sponge, lap, and instrument counts were correct x2. The patient tolerated the procedure well, and was taken to PACU in stable condition. Pressure at 80 mmHg Fluid deficit 285 cc Total fluid 1729 cc Total cutting time 41 seconds Complications: none Post-operative Condition: stable Disposition: PACU Plan for aftercare: Home after recovery
[2023-11-11 11:38] VITALS: BP 116/74; PULSE 69; RESP 16; O2SAT 98
--- NOTE | 2023-11-11 11:39 | SUR.OPER ---
Lithotomy on padded OR bed, head on pillow, arms secured on padded arm boards at <90 degrees abduction. Legs secured in padded yellow fins stirrups. Patient voided at 1035 prior to going to OR
[2023-11-11 11:46] VITALS: BP 115/66; PULSE 78; RESP 16; TEMP 36.2; O2SAT 98
[2023-11-11 11:51] VITALS: BP 115/78; PULSE 78; RESP 16; TEMP 36.2; O2SAT 98
[2023-11-11] MEDS: OXYCODONE IR 5 MG TABLET PO (11:56)
[2023-11-11] MEDS: ONDANSETRON 4 MG/2 ML INJ IV (11:56)
--- NOTE | 2024-01-04 13:56 | CM.DANOTE ---
Initial DCP Assessment Visit Note Reviewed EMR and team rounds for pt's medical status and updates. 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 Payor: Medicare Attending: Dr. Majano Pt is a 73 year-old F post-op day one from a lap supracervical hysterectomy. She has a hx of endometriom cancer. Plan is to follow-up post operatively with Dr. Majano OP. No identified needs for DCP, spouse provided transport home. Discharge Planning/Care Management CM Discharge Assessment Start: 01/04/24 13:54 Freq: Status: Active Protocol: Document 01/04/24 13:54 DPL (Rec: 01/04/24 13:56 DPL [id number]) Discharge Planning Assessment Assigned Joiner Helper GOOD [place] Advance Directives? Yes Advance Directives on File No Expected Length of Stay 1 Has Patient been admitted in last 30 No days? Prior Living Arrangements House Household Members spouse Independent with ADL's Yes Is patient alert and oriented? Yes Comment N/A Caregiver for Another No Comment No anticipated d/c needs identified during admission Barriers to Discharge No Discharge Plan Home Transportation Arrangement Spouse Referrals Initiated None needed Review Status In Process Pre-Anesthesia Assessment Start: 11/09/23 13:36 Freq: Status: Discharge Protocol: Document 11/09/23 13:36 CAB (Rec: 11/09/23 13:58 CAB [id number]) Pre-Anesthesia Assessment Patient Information Reviewed Via Chart Review Primary Care Provider Cynthia Yen Seen Specialist in Last 12 Months Yes Specialist Seen General surgeon,Slotter Operator Primary Language Haitian Preferred Language Haitian Securities Attorney Required No Height 154.94 cm Weight 64.41 kg Body Mass Index (BMI) 26.8 Hx Anesthesia Reactions No Hx Family Anesthesia Reaction No Hx Malignant Hyperthermia No Hx Blood Transfusion Reaction No Anesthesia Review Requested No Trend Investigator No alcohol intake current alcohol intake frequency a few times a week Smoking Status Former smoker how long ago did patient quit smoking 1986 Substance Use Type marijuana Patient is completely paralyzed or No completely immobile Mental Status Oriented to own ability Is patient on oxygen? No Hx Sleep Apnea Yes Sleep apnea treatment Treatment unknown Currently Taking a Beta Michelle No Anti-Coagulant Therapy No Cardiac Testing No Hx Pacemaker/ICD No Pacemaker Rep Required? No Urinary Catheter Present No Hx Urinary Self Catheterization No Diabetes No: Pre-diabetes Patient No Lactating No Presence of External or Internal Medical No Devices Received a COVID vaccine? Yes Marital Status Lives With spouse Patient Discharge Plan Description Return Home Advance Directives? Yes
== END 2023-11-11 12:07 | disposition home or self-care (01) ==
PROVIDERS: PCP Family Medicine; Referring Provider Obstetrics & Gynecology; Visit Provider Obstetrics & Gynecology
PROC: 0UDB8ZZ Extraction of Endometrium, Via Natural or Artificial Opening Endoscopic (ICD-10-PCS; CPT 58558; principal; 2023-11-11 10:15)
DX: N85.02 Endometrial intraepithelial neoplasia [EIN] (principal); N94.89 Other specified conditions associated with female genital organs and menstrual cycle; N88.2 Stricture and stenosis of cervix uteri
CPT/HCPCS: 58558; J0136; J1100; J1885; J2405; J2704; J3010

== ENCOUNTER 2023-12-17 13:26 | Emergency (ER) | payer MEDICARE, OTHER, SELFPAY ==
[2023-12-17 13:28] VITALS: BP 174/80; PULSE 59; RESP 16; TEMP 36.6; O2SAT 99; BMI 25.9
--- NOTE | 2023-12-17 13:54 | ED_ITS ---
HPI - Female Genitourinary <Darnell Hernandez PA-C - Last Filed: 12/17/23 15:45> General Chief complaint: Urogenital-Female Stated complaint: vaginal discharge Time Seen by Provider: 12/17/23 13:54 Source: patient Mode of arrival: Family Vehicle History of Present Illness HPI Narrative: This is a 73-year-old female presents to the emergency department due to vaginal discharge onset 1 hour ago. She states that she was squatting down and noticed some vaginal discharge. Unclear of the color but states that when she rubbed it it did not appear colored or bloody. Denies any vaginal bleeding. Denies any fevers, significant abdominal pain, nausea, vomiting, or any other concerning signs or symptoms. No itching. No dysuria, urinary frequency, or any other concerning signs or symptoms. States that she was being treated for endometriosis by Dr. Majano and has not informed her of this vaginal discharge. Denies any chance of gonorrhea or chlamydia. Related Data Previous Rx's Medication Instructions Recorded Nifedipine Oint 1 dose topical 2XD #30 grams 06/04/23 miscellaneous medical supply 1 ea miscellaneous BID #1 ea 06/04/23 psyllium husk (with sugar) 3.4 1 tbsp PO BID #822 grams 06/04/23 gram/7 gram oral powder (Fiber (psyllium husk-sugar)) hydrochlorothiazide 25 mg tablet 25 mg PO QDAY #90 tabs 12/06/23 Allergies Allergy/AdvReac Type Severity Reaction Status Date / Time No Known Drug Allergies Allergy Verified 11/23/23 09:26 Review of Systems <Darnell Hernandez PA-C - Last Filed: 12/17/23 15:45> Review of Systems Narrative: GENERAL: Denies chills, fatigue, malaise, fever, sweats. HEENT: Denies sinus pain, ear pain, sore throat, difficulty swallowing, dizziness. RESPIRATORY: Denies dyspnea, cough, wheezing, hemoptysis, sputum. CARDIOVASCULAR: Denies chest pain, palpitations, orthopnea, edema, GASTROINTESTINAL: Denies nausea, vomiting, abdominal pain, diarrhea, constipation, melena. : Denies dysuria, frequency, incontinence, hematuria, urinary retention. Repo rts vaginal discharge MUSCULOSKELETAL: denies weakness, joint pain, or bony pain SKIN: Denies rash, skin lesions, or other NEUROLOGIC: Denies weakness, headache, numbness, change in speech, confusion, seizures, incoordination. PSYCHIATRIC: No concerning psychosocial issues. 12 point review of systems is negative except for those stated above Patient History <Darnell Hernandez PA-C - Last Filed: 12/17/23 15:45> Medical History (Updated 12/17/23 @ 14:12 by Darnell Hernandez PA-C) History of COVID-19 (12/2022) Prediabetes Osteopenia after menopause Psychiatric care (2014) Menopause (2002) Normal Papanicolaou smear Retroversion of hip (2013) Degenerative arthritis of thumb (2012) Synovial cyst of popliteal space [Alatorre], right knee (2013) Shoulder pain (2015) Cervical spine disease (2012) Wax in ear Itching of ear Recurrent sinusitis History of recurrent ear infection Easy bruisability Hearing loss Tinnitus Hemorrhoids (2011) Chicken pox (~1954) Measles (~1954) Hayfever Sleep apnea (2012) Osteoarthritis (2012) Hyperlipidemia Hypertension Actinic keratosis of right cheek (2013) Surgical History (Updated 11/09/23 @ 13:55 by Lashae Hernandez RN) Hx of colonoscopy (06/04/23) Anesthesia Status post knee surgery (1965) Family History Grandmother Heart disease [place] (myocardial infarction) Mother Diabetes mellitus, type II CAD (coronary artery disease) Osteoarthritis Mild dementia S/P CABG (coronary artery bypass graft) Renal failure Heart disease Hypertension Grandfather Parkinson's disease Pneumonia Grandmother Heart disease Father COPD (chronic obstructive pulmonary disease) Emphysema of lung Grandfather Esophageal hemorrhage [place] (myocardial infarction) Esophageal varices Sister Left hip pain alcohol intake frequency: a few times a week Substance Use Type: marijuana Exam <Darnell Hernandez PA-C - Last Filed: 12/17/23 15:45> Narrative Exam Narrative: GENERAL: Well-developed patient, in mild distress. HEAD: Atraumatic. Normocephalic. EYES: Pupils equal round and reactive. Extraocular motions intact. No scleral icterus. No injection or drainage. ENT: Nose without bleeding, purulent drainage. Throat without erythema, tonsillar hypertrophy or exudate. Airway patent. NECK: Trachea midline. Non tender EXTREMITIES: No edema or joint tenderness. NEURO: AOx3. SKIN: No rash or erythema of visible areas new line : Deferred Initial Vital Signs Initial Vital Signs: Vital Signs Temperature 97.8 F 12/17/23 13:28 Pulse Rate 59 L 12/17/23 13:28 Respiratory Rate 16 12/17/23 13:28 Blood Pressure 174/80 H 12/17/23 13:28 Pulse Oximetry 99 12/17/23 13:28 Oxygen Delivery Method Room Air 12/17/23 13:28 <Eulalia Varela MD - Last Filed: 12/17/23 17:27> Initial Vital Signs Initial Vital Signs: Vital Signs Temperature 97.8 F 12/17/23 13:28 Pulse Rate 59 L 12/17/23 13:28 Respiratory Rate 16 12/17/23 13:28 Blood Pressure 174/80 H 12/17/23 13:28 Pulse Oximetry 99 12/17/23 13:28 Oxygen Delivery Method Room Air 12/17/23 13:28 Course <Darnell Hernandez PA-C - Last Filed: 12/17/23 15:45> Orders Ordered: ED Orders 12/17/23 13:49 Urine Culture Stat Urine Microscopic Stat 12/17/23 14:10 KATYA Prep Stat Vital Signs Vital signs: Vital Signs - 8 hr 12/17/23 13:28 Temperature 97.8 F Pulse Rate 59 L Respiratory Rate 16 Blood Pressure 174/80 H Pulse Oximetry 99 Oxygen Delivery Method Room Air <Eulalia Varela MD - Last Filed: 12/17/23 17:27> Orders Ordered: ED Orders 12/17/23 13:49 Urine Culture Stat Urine Microscopic Stat 12/17/23 14:10 KATYA Prep Stat Vital Signs Vital signs: Vital Signs - 8 hr 12/17/23 13:28 Temperature 97.8 F Pulse Rate 59 L Respiratory Rate 16 Blood Pressure 174/80 H Pulse Oximetry 99 Oxygen Delivery Method Room Air MDM - Female Genitourinary <Darnell Hernandez PA-C - Last Filed: 12/17/23 15:45> Lab Data Labs: Lab Results 12/17/23 Range/Units 13:49 Urine RBC 0-1/hpf (0-5/HPF) Urine WBC 1-5/hpf (0-5/HPF) Ur Squamous Epith Cells 0-1 /hpf (0-5/HPF) Urine Bacteria None seen (None) Ur Culture Indicated? Specimen cultured Vol Urine Centrifuged 10ml (spun) Urine Dip Bedside Urine Glucose Negative Bedside Urine Bilirubin - Negative Bedside Urine Ketone - Negative Urine Specific [place] 1.005 Bedside Urine Occult Blood ++ Bedside Urine pH 6.0 Bedside Urine Protein - Negative Bedside Urine Urobilinogen - Negative Bedside Urine Nitrite - Negative Bedside Urine Leukocytes +/- 15 Esterase MDM Narrative Medical decision making narrative: ED course: This is a 73-year-old female presents emergency department due to 1 hour of vaginal discharge. Wet mount was negative for BV, Andreina, Trichomonas. Patient was called to inform of these results. Patient has established assembler erector, Dr. Majano, who she has close contact with and will follow up. Patient denies any vaginal itching concerning for Trichomonas and will not empirically treat. Patient's urine did come back positive for leuks but patient does not report any UTI symptoms. Shared decision-making utilized and no antibiotics prescribed at this current time. CC: Vaginal discharge Complicating co-morbidities: Endometriosis Data collected from: Previous notes Medical records reviewed: Patient has not been seen in the emergency department in the past. History of diverticulosis. Differential considered, but not limited to: BV, Trichomonas, Andreina Exam documented above, pertinent findings include: No significant abnormalities Lab Test results independently reviewed as above. Pertinent findings: UA positive for leuks although patient does not report any UTI symptoms. Wet mount negative Imaging studies independently reviewed: None obtained Scores Used: None MIPS Elements: None Consultations: None Treatments: None Re-evaluations: None Discussion: Discussed plan with the patient was comfortable with the plan Diagnosis: Vaginal discharge Disposition: see below, along with detailed discharge instructions that have been reviewed with patient as well as indications for ED re-evaluation and additional outpatient follow up <Eulalia Varela MD - Last Filed: 12/17/23 17:27> Lab Data Labs: Lab Results 12/17/23 Range/Units 13:49 Urine RBC 0-1/hpf (0-5/HPF) Urine WBC 1-5/hpf (0-5/HPF) Ur Squamous Epith Cells 0-1 /hpf (0-5/HPF) Urine Bacteria None seen (None) Ur Culture Indicated? Specimen cultured Vol Urine Centrifuged 10ml (spun) Urine Dip Bedside Urine Glucose Negative Bedside Urine Bilirubin - Negative Bedside Urine Ketone - Negative Urine Specific [place] 1.005 Bedside Urine Occult Blood ++ Bedside Urine pH 6.0 Bedside Urine Protein - Negative Bedside Urine Urobilinogen - Negative Bedside Urine Nitrite - Negative Bedside Urine Leukocytes +/- 15 Esterase Discharge Plan Departure Patient Disposition: Home Clinical Impression: Discharge from the vagina Activity Restrictions/Additional Instructions: Thank you for coming to the [facility] Emergency Department today. We will call you to inform you of any changes to the current treatment plan if your swab comes back positive for anything. Please follow up with Dr. Majano on Wednesday for routine follow up. Please return to the emergency department if you develop any fevers, significant abdominal pain, or any other concerning signs or symptoms. I hope you feel better soon. Please follow up with your primary care provider within a week if your symptoms continue. If you do not have a primary care provider please contact the [facility] Resource line at [phone]. They will ask some questions about your medical history and help you get set up with a provider in the community. 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 This medication has been called into [facility] in [place]. They will call you to confirm that you want them to mix this medication and are willing to pay for it prior to making it. Just expect that phone call and if you have any questions or concerns about this prescription or about your anal fissure please do not hesitate to call the office of [facility] at [phone] Referrals: Cynthia Yen DO [Primary Care Provider] - Stand Alone Forms: Patient Portal/API ED Sign-out <Eulalia Varela MD - Last Filed: 12/17/23 17:27> Cosign ED Attending [place] Attestation: I did not see this patient. I was available all times for consultation.
[2023-12-17 14:03] LABS: Urine Volume 10mL (spun)
[2023-12-17 14:07] LABS: Bacteria Urine None Seen; Culture Indicated Urine Specimen Cultured; RBC Urine 0-1/HPF (0-5/HPF); Squamous Epithelial Cell Urine 0-1 /HPF (0-5/HPF); WBC Urine 1-5/HPF (0-5/HPF)
== END 2023-12-17 14:26 | disposition home or self-care (01) ==
PROVIDERS: Emergency Provider Physician Assistant Medical; PCP Family Medicine
DX: N89.8 Other specified noninflammatory disorders of vagina (principal)
CPT/HCPCS: 81003; 81015; 87086; 87220; 99282

== ENCOUNTER 2024-01-03 06:26 | Day surgery (SDC) | payer MEDICARE, OTHER, SELFPAY ==
[2023-12-30 09:41] VITALS: BMI 25.9
[2024-01-03] VITALS (13 sets, daily range): BP systolic 111–136; BP diastolic 51–78; PULSE 54–72; RESP 9–18; TEMP 36–36.7; O2SAT 96–100; BMI 25.4
--- NOTE | 2024-01-03 | PATH_ITS ---
[facility] Accession Number: [id number] No. of containers..01 Tissue . 01 Material submitted: . uterus - UTERUS,CERVIX,BILATERAL FALLOPIAN TUBES,BILATERAL OVARIES,UTERINE FIBROID . 01 Diagnosis: UTERUS, CERVIX, BILATERAL FALLOPIAN TUBES AND BILATERAL OVARIES, HYSTERECTOMY AND BILATERAL SALPINGO-OOPHORECTOMY: Endometrioid intraepithelial neoplasia (EIN). Adenomyosis. Leiomyomata. Ovaries with benign fibroma (left), small serous cystadenoma (right) and benign inclusion cysts. Bilateral fimbriated fallopian tubes with benign paratubal cysts. Cervix with inflammation; no dysplasia. No evidence of invasive malignancy. [facility] 01/07/2024 1107 Local . 01 Electronically signed: . Maryanne Schmitt MD, Pathologist NPI- [id number] . 01 Gross description: . The specimen is received in formalin labeled with the patient's name, , and uterus, cervix, bilat tubes, bilat ovaries, fibroid, and consists of an intact uterus (46 grams, 6.6 cm from superior to inferior, 4.9 cm from medial to lateral, and 2.8 cm from anterior to posterior), with attached cervix (1.8 x 1.8 cm) with attached left fimbriated fallopian tube (4.2 x 0.6 cm), attached left ovary (2 grams, 2.2 x 1.3 x 1.0 cm), attached right fallopian tube (3.1 x 0.7 cm), and attached right ovary (2 grams, 2.3 x 1.3 x 1.0 cm). The ectocervix is sandhu and wrinkled with a slit-like os measuring 0.7 cm in diameter. The serosa is violaceous with a large pedunculated nodule on the superior surface measuring 2.9 x 2.5 x 2.3 cm. The posterior paracervical margin and posterior serosa are inked black, the anterior paracervical margin and anterior serosa are inked blue, the left parametrial margin is inked green, the right parametrial margin is inked red (a purple suture is identified within the right parametrial margin with no designation per the requisition), and the surface of the pedunculated nodule is inked orange. The endocervical canal has sandhu herringbone mucosa with no lesions identified, and measures 1.6 cm in length. The endometrial cavity is filled with red-brown hemorrhagic material, and measures 2.5 cm from cornu to cornu, and 3.6 cm in length, with a sandhu, slightly nodular endometrium that averages 0.1 cm thick, with no distinct lesions grossly identified. . The myometrium is sandhu and trabecular measuring up to 1.4 cm thick with multiple well-circumscribed white, whorled nodules ranging from 0.3 to 2.5 cm. The largest aforementioned pedunculated nodule has a yellow, hard cut surface consistent with calcification. No hemorrhage or necrosis is identified. . The left fallopian tube has violaceous, smooth serosa with multiple small cystic structures measuring up to 0.2 cm in greatest dimension filled with cloudy serous fluid. Sectioning reveals an unremarkable stellate lumen. The left ovary has a sandhu, cerebriform external surface with a white rubbery nodule measuring 1.0 x 1.0 x 0.7 cm. The external surface of the ovary is inked blue, and sectioning reveals the nodule to have a white, whorled cut surface with no additional lesions identified. . The right tube has violaceous, smooth serosa with multiple cystic structures measuring up to 0.4 cm in greatest dimension filled with cloudy serous fluid. Sectioning reveals an unremarkable stellate lumen. The right ovary has a brown, cerebriform external surface that is inked green, and sectioning reveals a thin, smooth-walled cystic structure measuring 0.7 cm in greatest dimension filled with sandhu serous fluid. The remaining cut surface is unremarkable. . Olericulture Teacher sections are submitted as follows: A1: Anterior and posterior cervix. A2-A7: Anterior full thickness sections from superior to inferior. A8: Anterior lower uterine segment (cervical end inked purple). A9-A16: Posterior full thickness sections from superior to inferior. A17: Posterior lower uterine segment (cervical end inked purple). A18: Calcified nodule following decalcification. A19: Left fallopian tube to include one-half of bisected fimbriae and cross sections. A20: Left ovary to include nodule. A21: Right fallopian tube to include one-half of bisected fimbriae and cross sections. A22: Right ovary to include cystic structure. ([id number]) /MRV 01/06/2024 1302 Local . 01 Pathologist provided ICD-10: C54.1, N85.02, N80.00, D25.9, D27.1 . 01 CPT . [id number] Performed at: 01 [facility] [address] [place] [address], [place], [place] [id number] MD aDvid Norton MD Phone: [phone]
[2024-01-03] MEDS: LACTATED RINGERS 1,000 ML 42 ML IV ×2 (07:13→08:48)
--- NOTE | 2024-01-03 07:37 | PM.PREOP ---
Pre-operative Note Interval Note History & Physical reviewed/Exam performed by Physician: Yes Changes to H&P: No H&P completed within 30 days and has changed as indicated here:: 12/21/23
--- NOTE | 2024-01-03 08:17 | SUR.OPER ---
Lithotomy on padded OR bed. Dieterich Pad Positioner under torso. Head on pillow, arms padded and tucked at sides. Legs secured in padded yellow fins stirrups.
[2024-01-03] MEDS: CEFAZOLIN 2 GM/100 ML PREMIX 100 ML IV (08:24)
--- NOTE | 2024-01-03 08:50 | PATH_ITS ---
Note [facility] Accession Number: [id number] TESTS RESULT FLAG UNITS REF RANGE LAB Clinician Provided Cytology Information No. of containers..01 Other (Miscellaneous) Source: PELVIC WASHING DIAGNOSIS: PELVIC WASHING NEGATIVE FOR MALIGNANT CELLS. MESOTHELIAL CELLS ARE PRESENT. THIS INTERPRETATION INCLUDES EVALUATION OF A CELL BLOCK. Pathologist ICD10: C54.1 Signed out by: Marta Castaneda MD, Pathologist NPI- [id number] Performed by: Dereje Tovar, Traffic Counter ([facility]) Gross description: 20 CC, PINK, CLOUDY RECEIVED: FRESH IN BLUE CAP CONTAINER.VO /VDU 01/04/2024 0521 Local FLAG LEGEND: L-Low Normal,H-High Normal,LL-Alert Low,HH-Alert High <-Panic Low,>-Panic High,A-Abnormal,AA-Critical Abnormal Performed at: 01 =[facility] [address], [place] [address] David Norton MD, Performed at: 01 [facility] [address], [place], [place] [id number] MD David Norton MD Phone: [phone]
[2024-01-03] MEDS: BUPIVACAINE 0.5% (PF) 30 ML, EPINEPHrine 0.15 MG INJ (09:07)
[2024-01-03] MEDS: OXYCODONE IR 5 MG TABLET PO ×2 (10:15→20:00)
--- NOTE | 2024-01-03 10:15 | PM.GYNOP.1 ---
Operative Date/Time/Diagnoses Date of procedure: 01/03/24 Time of procedure: 10:15 Pre-op diagnosis: Endometrial epithelial neoplasia Post-op diagnosis: same Procedure & Clinicians Procedure: Procedures Operation Date: 01/03/24 07:45 Actual Procedure Side Surgeon p Laparoscopic assisted vaginal Hysterectomy with bilateral salpingo-oophorectomy and pelvic washings June Majano MD Indications: 73 year old with endometrial intraepithelial neoplasia involving a polyp Surgeon: June Majano Furnace Operator And Tender: Vivien Morales Anesthesia Type: General and Local Operative Notes Findings: 5 wk size anteverted uterus 2cm subserosal fundal posterior fibroid Normal tubes and ovaries Normal appendix Right upper quadrant adhesions Liver and gallbladder not visualized Closure Type: primary Specimen(s): left tube & ovary, right tube & ovary, uterus and other (Pelvic washings to cytology) Applied: catheter (Removed at the end of the case) Estimated blood loss (mL): 10 Blood products transfused: none Procedure in detail: The patient was taken to the operating room where she was placed in the dorsal supine position. After adequate general endotracheal anesthesia was achieved, she was placed in the dorsal lithotomy position, and prepped and draped in the usual sterile fashion. A time-out was performed. A bivalve speculum was placed into the vagina and the anterior lip of the cervix was grasped with a single-tooth tenaculum. The cervical os was sequentially dilated until the Zumi uterine manipulator could pass easily into the endometrial cavity. There was some drainage from the uterus upon dilation. The single-tooth tenaculum was removed from the anterior lip of the cervix. The bivalve speculum was removed from the vagina. Attention was then turned to the abdomen where 6 cc of 0.5% Marcaine with epinephrine were injected in the umbilical fold. A 5 mm incision was made. The Veress needle was placed into the peritoneal cavity, and its placement confirmed by aspiration and drop test. The abdominal cavity was insufflated with 3.1 L of CO2. The Veress needle was removed, and a 5 mm trocar was placed without difficulty. Two other 5 mm trocars were placed 4 cm lateral to the midline at the level of the umbilicus after 6 cc of 0.5% Marcaine with epinephrine were injected. The right tube and ovary were grasped with an atraumatic grasper. The infundibulopelvic ligament on the right side was cauterized and cut with the power seal. The mesosalpinx was cauterized and cut all the way down to the cornua of the uterus. The broad ligament and round ligament were cauterized and cut with the power seal. The uterine arteries on the right side were extensively cauterized. All of this was repeated on the patient's left side. The CO2 was turned off. The abdomen was covered with sterile towels. Attention was then turned to the vagina where the Zumi uterine manipulator was removed from the uterus. The uterus was grasped with a 4 tooth tenaculum. 10 cc of 0.5% Marcaine were injected circumferentially around the cervix. The cervix was incised with a # 10 blade circumferentially. The bladder and rectum were dissected off of the lower uterine segment and cervix sharply and with an open moistened Ray-Anabela. The peritoneum was identified anteriorly and entered sharply with the Metzenbaum scissors. The retractor was placed into the anterior cul-de-sac. Posteriorly the posterior cul-de-sac was entered sharply with the Rouse scissors. The long weighted speculum was placed into the posterior cul-de-sac. The uterosacral cardinal ligament complex was clamped, transected, and suture ligated with 0 Vicryl and tagged with a hemostat. This was repeated on the patient's left side. The uterus, tubes, and ovaries as well as in the attached subserosal fibroid were handed off for specimen. The vaginal cuff was closed with a series of [id number] sutures with 0 Vicryl. Hemostasis was achieved. Gloves were changed and attention was then turned to the abdomen where the peritoneal cavity was re-insufflated with carbon dioxide gas. The pelvis was copiously irrigated with warm normal saline. There was no bleeding noted. The instruments were removed from the abdomen. The CO2 was allowed to escape. The incisions were repaired with 4-0 Monocryl in a subcuticular fashion. Steri-Strips and Allevyn dressings were placed. Sponge, lap, and instrument counts were correct x2. The patient tolerated the procedure well, and was taken to PACU in stable condition. Complications: none Post-operative Condition: stable Disposition: PACU Plan for aftercare: To Acute Care after Recovery
--- NOTE | 2024-01-03 10:27 | SUR.PHASEI ---
Report called to Marcia.
--- NOTE | 2024-01-03 10:34 | SUR.PHASEI ---
Patient transferred to the floor with belongings bag x2 by Laura.
[2024-01-03] MEDS: LACTATED RINGERS 1,000 ML 70 ML IV (11:30)
[2024-01-03] MEDS: ACETAMINOPHEN 325 MG TABLET 650 MG PO ×2 (15:41→22:14)
[2024-01-03] MEDS: IBUPROFEN 600 MG TABLET PO ×2 (15:41→22:14)
[2024-01-03] MEDS: ONDANSETRON 4 MG/2 ML INJ IV (20:00)
[2024-01-03] MEDS: DOCUSATE 100 MG CAPSULE 200 MG PO (22:14)
[2024-01-04] MEDS: OXYCODONE IR 5 MG TABLET PO ×2 (02:22→09:25)
[2024-01-04 04:00] VITALS: BP 115/47; PULSE 67; RESP 18; TEMP 36.8; O2SAT 98
[2024-01-04 04:35] LABS: Add Manual Diff / Slide Review NO; Basophils Absolute Auto 100 /uL (0-100); Basophils Percent Auto 0.6 % (0-2); Eosinophils Absolute Auto 0 /uL (0-450); Eosinophils Percent Auto 0.1 % (2-4); Lymphocytes Absolute Auto 2000 /uL (1100-4500); Lymphocytes Percent Auto 14.2 % (25-40); Mean Corpuscular HGB Conc 34.4 % (30-36); Mean Corpuscular Hemoglobin 34.6 PG (26-34); Mean Corpuscular Volume 100.6 fL (80-100); Monocytes Absolute Auto 1000 /uL (0-900); Monocytes Percent Auto 7.6 % (3-14); Neutrophils Absolute Auto 10700 /uL (1500-7000); Neutrophils Percent Auto 77.5 % (50-75); Platelet Count 288 X10^3/uL (150-400); Red Blood Cell Count 3.18 X10^6/uL (4.0-5.2); Red Cell Distribution Width 12.9 % (11.6-14.8); White Blood Cell Count 13.7 X10^3/uL (4.5-11.0)
[2024-01-04] MEDS: IBUPROFEN 600 MG TABLET PO ×2 (05:05→09:26)
[2024-01-04] MEDS: ACETAMINOPHEN 325 MG TABLET 650 MG PO ×2 (05:06→09:26)
[2024-01-04] MEDS: DOCUSATE 100 MG CAPSULE 200 MG PO (08:23)
[2024-01-04] MEDS: hydroCHLOROthiazide 25 MG TABLET PO (08:23)
[2024-01-04 09:00] VITALS: BP 106/45; PULSE 57; RESP 16; TEMP 36.7; O2SAT 96
--- NOTE | 2024-01-04 10:16 | PC.NURSE ---
Discharge Note Patient A&O, VSS, RA, patient premedicated prior to discharge. Discharge packet reviewed with patient, all questions/concerns addressed. PIV discontinued. Patient able to dress self and pack all belongings. Patient reminded to picking supervisor prescriptions at preferred pharmacy. Patient taken down via wheelchair to POV.
--- NOTE | 2024-01-04 18:36 | PM.DS.1 ---
History of Present Illness History of Present Illness Date Patient Seen: 01/04/24 Time Patient Seen: 08:40 Chief complaint: Lap Supracervical Hysterectomy *OPB* Narrative: Patient is a 73-year-old postop day # 1 status post laparoscopic-assisted vaginal hysterectomy with bilateral salpingo-oophorectomy. This was done due to endometrial epithelial neoplasia in a polyp on biopsy. Discharge Providers Provider Discharge Date: 01/04/24 Primary care physician: Cynthia Yen DO Discharge provider: June Majano MD Summary Hospital Course Discharge Diagnosis: Endometrial epithelial neoplasia Subserosal fibroid Status post LAVH/BSO Hospital Course: Patient is a 73-year-old who presented on January 03, 2024 for a scheduled LAVH/BSO due to endometrial epithelial neoplasia in a polyp that was found on biopsy. She underwent this procedure without complication. Her postoperative course was unremarkable and she is discharged home on postop day # 1. Her pain is well controlled. No nausea or vomiting. She is tolerating a diet. She has emptied her bladder. She is ambulating independently. Status at Discharge Cognitive/behavioral status at discharge: oriented Functional status at discharge: independent ambulation Overall status at discharge: patient is progressing back to baseline Time Spent with Patient Time spent: Less than 30 minutes Exam Vital Signs (past 8 hours): Oxygen Delivery Method Room Air Oxygen Flow Rate 0 Narrative Exam Narrative: Generally: Patient is sitting up in bed, no acute distress Lungs: Clear to auscultation bilaterally Cardiovascular: Regular rate and rhythm Abdomen: Soft and flat. Incisions: Clean dry and intact with Allevyn dressings Extremities: No edema, negative Homans Objective Labs 01/04/24 04:11 Labs: Laboratory Results - last 24 hr 01/04/24 04:11 WBC 13.7 H RBC 3.18 L Hgb 11.0 L Hct 32.0 L MCV 100.6 H MCH 34.6 H MCHC 34.4 RDW 12.9 Plt Count 288 Neut % (Auto) 77.5 H Lymph % (Auto) 14.2 L [place] % (Auto) 7.6 Eos % (Auto) 0.1 L Baso % (Auto) 0.6 Neut # (Auto) 02887 H Lymph # (Auto) 2000 [place] # (Auto) 1000 H Eos # (Auto) 0 Baso # (Auto) 100 PFSH Medical History (Updated 01/01/24 @ 00:00 by ) History of COVID-19 (12/2022) Prediabetes Osteopenia after menopause Psychiatric care (2015) Menopause (2003) Normal Papanicolaou smear Retroversion of hip (2013) Degenerative arthritis of thumb (2012) Synovial cyst of popliteal space [Alatorre], right knee (2014) Shoulder pain (2016) Cervical spine disease (2013) Wax in ear Itching of ear Recurrent sinusitis History of recurrent ear infection Easy bruisability Hearing loss Tinnitus Hemorrhoids (2011) Chicken pox (~1955) Measles (~195) Hayfever Sleep apnea (2013) Osteoarthritis (2012) Hyperlipidemia Hypertension Actinic keratosis of right cheek (2013) Surgical History History of hysteroscopy (11/11/23) Hx of colonoscopy (06/04/23) Anesthesia Status post knee surgery (1965) Family History Grandmother Heart disease NC (myocardial infarction) Mother Diabetes mellitus, type II CAD (coronary artery disease) Osteoarthritis Mild dementia S/P CABG (coronary artery bypass graft) Renal failure Heart disease Hypertension Grandfather Parkinson's disease Pneumonia Grandmother Heart disease Father COPD (chronic obstructive pulmonary disease) Emphysema of lung Grandfather Esophageal hemorrhage NC (myocardial infarction) Esophageal varices Sister Left hip pain Social History household members: spouse Smoking Status: Former smoker alcohol intake: current substance use type: marijuana Discharge Assessment & Plan Assessment and Plan Assessment: Postop day # 1 status post LAVH/BSO doing very well Plan of Treatment: Discharge to home Follow-up as scheduled for her postop visits Discharge Plan Discharge Plan Patient Disposition: Home Provider Discharge Comment: Call with fever, chills, or redness or drainage around the incisions Call with vaginal bleeding more than spotting to light Tylenol 650 mg every 6 hours as needed Ibuprofen 600 mg every 6 hours as needed Stool softeners until bowel returns to normal Discharge orders & Medications Discharge Orders: Discharge (Order); Ordered 01/04/24 Ordered By: June Majano Prescriptions: New oxycodone 5 mg tablet 5 mg PO Q4H PRN (Reason: pain) Qty: 14 0RF Continued hydrochlorothiazide 25 mg tablet 25 mg PO QDAY Qty: 90 0RF Fiber (psyllium husk-sugar) 3.4 gram/7 gram powder 1 tbsp PO BID Qty: 822 0RF Pharmacist Comment: Tyelenol taken at 9:30am can take again in 6hrs at 3:30pm. Ibuprofen taken at 9:30 can take again in 6hrs at 3:30pm. Follow up/Referrals: June Majano MD [Physician] - As previously scheduled (Postop visits already scheduled) Diet/Activity/Treatments Diet: Regular Activity: No heavy lifting for the first week Nothing in the vagina until 6 weeks Skin/Wound/Dressing Care Report to your healthcare provider any signs of infection, such as:: chills, fever, increased pain, unusual drainage and unusual redness Dressing: Remove outer pink dressings with attached gauze on morning after a shower May shower daily Visit Report/Discharge Packet Instructions: DI for Hysterectomy, DI for Laparoscopy, DI for Prescription Opioid Use, DI for Vaginal Hysterectomy Stand Alone Forms: Patient Portal/API, Surgery Discharge Discharge Data Primary Care Provider: Cynthia Yen Attending Provider: June Majano
== END 2024-01-04 10:00 | disposition home or self-care (01) ==
LOC: OR 06:27 → AC 06:28
PROVIDERS: PCP Family Medicine; Referring Provider Obstetrics & Gynecology; Visit Provider Obstetrics & Gynecology
PROC: 0UT94ZL Resection of Uterus, Supracervical, Percutaneous Endoscopic Approach (ICD-10-PCS; CPT 58552; principal; 2024-01-03 07:45)
DX: N85.02 Endometrial intraepithelial neoplasia [EIN] (principal); N73.6 Female pelvic peritoneal adhesions (postinfective); D25.2 Subserosal leiomyoma of uterus; D25.9 Leiomyoma of uterus, unspecified; D27.1 Benign neoplasm of left ovary; D27.0 Benign neoplasm of right ovary
CPT/HCPCS: 58552; 36415; 82962; 85025; J0171; J0690; J1100; J1170; J2250; J2405; J2704; J3010

== ENCOUNTER → 2024-01-19 08:32 | Outpatient (CLI) | payer MEDICARE, OTHER, SELFPAY ==
[2024-01-03 17:20] VITALS: BMI 25.4
[2024-01-19 09:04] LABS: Add Manual Diff / Slide Review NO; Basophils Absolute Auto 100 /uL (0-100); Basophils Percent Auto 0.8 % (0-2); Eosinophils Absolute Auto 100 /uL (0-450); Eosinophils Percent Auto 1.3 % (2-4); Hematocrit 37.6 % (36-46); Lymphocytes Absolute Auto 1300 /uL (1100-4500); Lymphocytes Percent Auto 16.4 % (25-40); Mean Corpuscular HGB Conc 34.6 % (30-36); Mean Corpuscular Volume 101.2 fL (80-100); Monocytes Absolute Auto 700 /uL (0-900); Monocytes Percent Auto 9.2 % (3-14); Neutrophils Absolute Auto 5600 /uL (1500-7000); Neutrophils Percent Auto 72.3 % (50-75); Platelet Count 387 X10^3/uL (150-400); Red Blood Cell Count 3.71 X10^6/uL (4.0-5.2); Red Cell Distribution Width 13.2 % (11.6-14.8); White Blood Cell Count 7.7 X10^3/uL (4.5-11.0)
[2024-01-19 09:25] LABS: Alanine Aminotransferase 13 IU/L (<35); Albumin 4.2 g/dL (3.5-5.0); Albumin Globulin Ratio 1.4 (1.0-2.8); Alkaline Phosphatase 54 U/L (38-126); Aspartate Aminotransferase 23 IU/L (14-36); BUN Creatinine Ratio 17.9 (6-22); Bilirubin Total 0.9 mg/dL (0.2-1.3); Blood Urea Nitrogen 12 mg/dL (7-17); Calcium 9.6 mg/dL (8.4-10.2); Carbon Dioxide 29 mmol/L (22-32); Chloride 105 mmol/L (98-107); Cholesterol 193 mg/dL (140-199); Estimated Glomerular Filt Rate > 60 mL/min (>60); Glucose 109 mg/dL (80-110); HDL Cholesterol 90 mg/dL (40-60); HEMOLYSIS < 15 (0-50); LDL Cholesterol Calculated 83 mg/dL (<100); Potassium 3.7 mmol/L (3.4-5.1); Sodium 139 mmol/L (137-145); Total Protein 7.2 g/dL (6.3-8.2); Triglycerides 100 mg/dL (35-150)
== END ==
LOC: LAB 08:36
PROVIDERS: PCP Family Medicine; Referring Provider Family Medicine; Visit Provider Family Medicine
DX: I10 Essential (primary) hypertension (principal); E78.2 Mixed hyperlipidemia; R73.03 Prediabetes; M85.80 Other specified disorders of bone density and structure, unspecified site
CPT/HCPCS: 36415; 80053; 80061; 85025

== ENCOUNTER → 2024-01-31 08:57 | Outpatient (CLI) | payer MEDICARE, OTHER, SELFPAY ==
[2024-01-03 17:20] VITALS: BMI 25.4
[2024-01-31 15:37] LABS: Creatinine Urine Random 14.5 mg/dL
[2024-01-31 15:42] LABS: Microalbumin Urine Random < 0.6 mg/dL (0-1.6)
== END ==
PROVIDERS: PCP Family Medicine; Visit Provider Family Medicine
DX: I10 Essential (primary) hypertension (principal)
CPT/HCPCS: 82043; 82570

== ENCOUNTER → 2025-03-28 13:08 | Outpatient (CLI) | payer MEDICARE, OTHER, SELFPAY ==
[2024-01-03 17:20] VITALS: BMI 25.4
[2025-03-28 15:46] LABS: Influenza A - CEPHEID Flu A NEGATIVE (NEGATIVE); Influenza B - CEPHEID Flu B NEGATIVE (NEGATIVE); Respiratory Syncytial Virus Negative (Negative)
[2025-03-28 15:49] LABS: COVID-19 CEPHEID 4-PLEX PCR Negative (Negative)
== END ==
PROVIDERS: PCP Family Medicine; Visit Provider Physician Assistant
DX: R05.1 Acute cough (principal)
CPT/HCPCS: 0241U

== ENCOUNTER → 2025-03-28 13:21 | Outpatient (CLI) | payer MEDICARE, OTHER, SELFPAY ==
[2024-01-03 17:20] VITALS: BMI 25.4
--- NOTE | 2025-03-28 13:23 | DI.RAD.S_ITS ---
PROCEDURE: XR CHEST 2V INDICATIONS: uri x 1 week, crackles on left side TECHNIQUE: 2 views of the chest were acquired. COMPARISON: None. FINDINGS: Surgical changes and devices: None. Lungs and pleura: Lungs are clear. No pleural effusions or pneumothorax. Mediastinum: Mediastinal contours are normal. Heart size is normal. Bones and chest wall: No suspicious bony abnormalities. Soft tissues appear unremarkable. IMPRESSION: No acute cardiopulmonary pathology. Dictated by: Nathan Shook M.D. on 03/28/2025 at 13:35 Approved by: Nathan Shook M.D. on 03/28/2025 at 13:35
== END ==
PROVIDERS: PCP Family Medicine; Referring Provider Physician Assistant; Visit Provider Physician Assistant
DX: J06.9 Acute upper respiratory infection, unspecified (principal); R05.1 Acute cough
CPT/HCPCS: 0241U; 71046